=== PATIENT | female | born 1975 | race Caucasian/White ===

== ENCOUNTER → 2016-10-10 | Outpatient (CLI) | payer SELFPAY | END | disposition home or self-care (01) | LOC: RAD 11:16 | PROVIDERS: ATTEND Nurse Practitioner Family | DX: M54.12 Radiculopathy, cervical region (principal) ==

== ENCOUNTER → 2018-06-23 | Outpatient (CLI) | payer BC | LOC: LAB.O 13:45 | PROVIDERS: ATTEND Family Medicine | DX: Z00.00 Encounter for general adult medical examination without abnormal findings (principal); R53.83 Other fatigue; E89.41 Symptomatic postprocedural ovarian failure ==

== ENCOUNTER → 2018-08-18 | Outpatient (CLI) | payer BC ==
--- NOTE | 2018-08-18 16:16 | RAD ---
EXAM DESCRIPTION: Cervical Spine,3 Views CLINICAL HISTORY: CERVICALGIA COMPARISON: October 10, 2016 IMPRESSION: 3 standing views of the cervical spine demonstrate vertebral body heights and intervertebral disc spaces to be maintained. Straightening of the normal cervical lordosis is seen with no abnormal increase in the prevertebral soft tissues. This could be secondary to patient positioning or muscle spasm. No significant facet arthropathy. The C1-2 relationship appears maintained, but is poorly visualized secondary to imaging technique on open-mouth odontoid view. Mild right uncovertebral joint hypertrophy at C5-6 is seen. Electronically signed by: Keron Arciniega MD 08/18/2018 4:14 PM CDT
--- NOTE | 2018-08-23 16:24 | MAM ---
EXAM DESCRIPTION: 3D Screening BILATERAL : Digital Mammography. CLINICAL HISTORY: 42 years Female ANNUAL SCREENING . No complaints. No personal or family history of breast cancer. Bilateral breast augmentation. Childbirth. Postmenopausal 15 years. No HRT. Lifetime risk of developing breast cancer (Tyrer-Cuzick model)(%): Not calculated COMPARISON: Spine study at this facility.. No prior reports available. TECHNIQUE: Bilateral CC and MLO projection full-field images, with Janice Implant Displacement digital tomosynthesis mammographic technique. Bilateral 2-D digital full-field images, MLO and CC projections, non-displaced. CAD Bilateral digital 2-D full-field MLO images with implant displacement. CAD not available for tomosynthesis or 2-D images. FINDINGS: The breast parenchymal density pattern is: Heterogeneously dense breast tissue, which may obscure small masses. No skin thickening or nipple retraction. Small microcalcifications in the right breast. Mostly medial. Bilateral retro-muscular saline implants, capsule intact where seen. No focal, stellate mass or density, focal asymmetry , and no suspicious microcalcifications bilaterally. IMPRESSION: Benign exam. BIRAD CATEGORY: 2 BENIGN FINDINGS. RECOMMENDATIONS: FOLLOW UP: Routine digital bilateral mammographic screening, one year interval from August 2018. Written communication explaining the IMPRESSION and follow-up, will be mailed to the patient and referring health care provider. The FINDINGS and the FOLLOW-UP plan were reviewed in person with the patient after the examination. According to the [employer], yearly mammograms are recommended starting at age 40 and continuing as long as a woman is in good health. Any breast change noted on a breast self-exam should be reported promptly to the patient's healthcare provider. Breast MRI is recommended for women with an approximately 20-25% or greater lifetime risk of breast cancer, including women with a strong family history of breast or ovarian cancer and women who have been treated for Hodgkin's disease. A negative mammographic report should not delay tissue diagnosis in patients with significant clinical history or physical findings. Extremely dense breast tissue limits the sensitivity of digital mammography. Electronically signed by: Cali Najera MD 08/23/2018 4:22 PM CDT
== END ==
LOC: RAD 09:28
PROVIDERS: ATTEND Family Medicine
DX: Z12.31 Encounter for screening mammogram for malignant neoplasm of breast (principal); M53.82 Other specified dorsopathies, cervical region

== ENCOUNTER → 2018-09-29 | Outpatient (CLI) | payer BC | LOC: US 12:08 | PROVIDERS: ATTEND Family Medicine | DX: R00.0 Tachycardia, unspecified (principal) ==

== ENCOUNTER → 2019-07-27 | Outpatient (CLI) | payer BC | LOC: YCFC.O 14:09 | PROVIDERS: ATTEND Family Medicine | DX: E78.5 Hyperlipidemia, unspecified (principal) ==

== ENCOUNTER → 2020-02-16 | Outpatient (CLI) | payer BC | LOC: LAB 10:59 | PROVIDERS: ATTEND Family Medicine | DX: R53.83 Other fatigue (principal) ==

== ENCOUNTER → 2020-03-28 | Outpatient (CLI) | payer BC | LOC: YCFC.O 12:18 | PROVIDERS: ATTEND Family Medicine | DX: R63.5 Abnormal weight gain (principal); E78.5 Hyperlipidemia, unspecified; Z87.440 Personal history of urinary (tract) infections; R53.83 Other fatigue ==